=== PATIENT | female | born 1995 | race Caucasian/White ===

== ENCOUNTER 2019-11-26 18:28 | Emergency (ER) | payer MEDICAID ==
[2019-11-26] MEDS ORDERED: NORMAL SALINE 1000 ML 1,000 ML IV ONE (19:07)
--- NOTE | 2019-11-26 20:46 | ER Document Report ---
ED Medical Screen (RME) - General Chief Complaint: Vomiting Stated Complaint: VOMITING Time Seen by Provider: 11/26/19 19:00 Notes: Patient is a 24-year-old female with a history of an appendectomy who presents the emergency department with a chief complaint of right lower quadrant abdominal pain and vomiting "red stuff." Denies any dysuria or vaginal discharge. Exam: Patient clutching right lower abdominal area. I have greeted and performed a rapid initial assessment of this patient. A comprehensive ED assessment and evaluation of the patient, analysis of test results and completion of medical decision making process will be conducted by an additional ED providers. Physical Exam - Vital signs Vitals: Temp Pulse Resp BP Pulse Ox 98.6 F 111 H 18 107/93 H 100 11/26/19 18:58 11/26/19 18:58 11/26/19 18:58 11/26/19 18:58 11/26/19 18:58 Course - Vital Signs Vital signs: Temp Pulse Resp BP Pulse Ox 98.6 F 111 H 18 107/93 H 100 11/26/19 18:58 11/26/19 18:58 11/26/19 18:58 11/26/19 18:58 11/26/19 18:58
[2019-11-26 21:38] LABS: APPEARANCE,URINE SLIGHTLY-CLOUDY; BILIRUBIN,URINE NEGATIVE (NEGATIVE); COLOR,URINE YELLOW; GLUCOSE, URINE NEGATIVE (NEGATIVE); KETONES,URINE TRACE mg/dL (NEGATIVE); LEUKOCYTE ESTERASE,URINE NEGATIVE (NEGATIVE); NITRITE,URINE NEGATIVE (NEGATIVE); PROTEIN,URINE 30 mg/dL (NEGATIVE); URINE SPECIFIC GRAVITY 1.024; UROBILINOGEN,URINE NEGATIVE mg/dL (<2.0)
[2019-11-26] MEDS ORDERED: KETOROLAC TROMETHAMINE INJ/PF 30 MG/1 ML SDV IV ONE (21:46)
[2019-11-26] MEDS ORDERED: ONDANSETRON HCL INJ/PF 4 MG/2 ML SDV IV ONE (21:46)
--- NOTE | 2019-11-26 21:50 | ER Document Report ---
ED GI/ - General Chief Complaint: Vomiting Stated Complaint: VOMITING Time Seen by Provider: 11/26/19 19:00 Primary Care Provider: YENIFER RIBERA MD [ACTIVE STAFF] - Follow up as needed Notes: CHIEF COMPLAINT: Right flank pain with vomiting today HPI: 24-year-old female who is otherwise reasonably healthy presenting for sudden onset of right flank pain with vomiting today. Pain started in the right back now radiates through the right front and flank region. Describes it as an intermittent sharp stabbing sensation with nausea. States she has thrown up multiple times states that she felt like there was some redness to the vomitus the last 1 or 2 times. Denies epigastric pain. Does report a history of ova malina cyst is not sure if this feels similar. Denies vaginal bleeding or discharge. ROS: See HPI - all other systems were reviewed and are otherwise negative Constitutional: no fever Eyes: no drainage, no blurred vision ENT: no runny nose, no sore throat Cardiovascular: no chest pain Resp: no SOB, no cough GI: + vomiting, no diarrhea, + abdominal pain : no dysuria Integumentary: no rash Allergy: no hives Musculoskeletal: no extremity pain or swelling Neurological: no numbness/tingling, no weakness MEDICATIONS: I agree with the patient medications as charted by the RN. ALLERGIES: I agree with the allergies as charted by the RN. PAST MEDICAL HISTORY/PAST SURGICAL HISTORY: Reviewed and agree as charted by RN. SOCIAL HISTORY: Reviewed and agree as charted by RN. FAMILY HISTORY: No significant familial comorbid conditions directly related to patient complaint EXAM: Reviewed vital signs as charted by RN. CONSTITUTIONAL: Alert and oriented and responds appropriately to questions. Well-appearing; well-nourished, mild distress secondary to pain HEAD: Normocephalic; atraumatic EYES: Conjunctivae clear, sclerae non-icteric ENT: normal nose; no rhinorrhea; moist mucous membranes NECK: Supple without meningismus CARD: RRR; no murmurs, no clicks, no rubs, no gallops; symmetric distal pulses RESP: Normal chest excursion without splinting or tachypnea ABD/GI: Normal bowel sounds; non-distended; soft, mild tenderness to the right lateral abdomen on palpation, no rebound, no guarding; no palpable organomegaly or masses. BACK: The back appears normal and is non-tender to palpation, there is no CVA tenderness EXT: Normal ROM in all joints; non-tender to palpation; no cyanosis, no effusions, no edema SKIN: Normal color for age and race; warm; dry; good turgor; no acute lesions noted NEURO: Moves all extremities equally; Motor and sensory function intact PSYCH: The patient's mood and manner are appropriate. Grooming and personal hygiene are appropriate. MDM: 24-year-old female with right flank pain began in the back now in the front intermittent sharp stabbing episodes no history of kidney stones but I suspect possible renal colic. Will obtain renal colic CT. Will treat patient's pain and nausea. If CT does not show definitive stone will consider pelvic etiology such as ovarian cyst or torsion, will obtain ultrasound and perform pelvic Past Medical History - Social History Smoking Status: Unknown if Ever Smoked Family History: Reviewed & Not Pertinent Physical Exam - Vital signs Vitals: Temp Pulse Resp BP Pulse Ox 98.6 F 111 H 18 107/93 H 100 11/26/19 18:58 11/26/19 18:58 11/26/19 18:58 11/26/19 18:58 11/26/19 18:58 Course - Re-evaluation Re-evalutation: 11/26/19 23:14 With female phosphoric acid operator present patient was prepped and draped. Normal external female genitalia. No visible lesions. There is a moderate amount of a whitish discharge in the vaginal vault. Mild cervical motion tenderness. Moderate right adnexal tenderness without palpable mass or fullness. Mild left adnexal tenderness on palpation. No visible bleeding. Cervical os is closed. Uterus normal sized mildly tender 11/27/19 00:27 Patient ultrasound shows a 1.9 cm right ovarian cyst as well as moderate fluid in the cul-de-sac I suspect she likely also ruptured a cyst. No other acute findings noted, no torsion. Will discharge home with DENTAL SCHEDULER follow-up - Vital Signs Vital signs: Temp Pulse Resp BP Pulse Ox 98.6 F 111 H 18 107/93 H 100 11/26/19 21:52 11/26/19 18:58 11/26/19 18:58 11/26/19 18:58 11/26/19 18:58 - Laboratory Result Diagrams: 11/26/19 21:30 11/26/19 21:30 Laboratory results interpreted by me: 11/26/19 21:18 Urine Protein 30 H Urine Ketones TRACE H Discharge - Discharge Clinical Impression: Rupture of cyst of right ovary Condition: Stable Disposition: HOME, SELF-CARE Instructions: Ovarian Cyst ([facility]) Additional Instructions: It appears you may have ruptured an ovarian cyst on the right side. This is likely the cause of your pain. Your lab work and imaging studies do not show other acute findings. Follow-up with your DENTAL SCHEDULER for further evaluation and treatment call for appointment. Pain medications as prescribed no driving if taking narcotics for pain. Prescriptions: Diclofenac Sodium [Voltaren 50 Mg Tablet.] 50 mg PO BID #20 tablet. Ondansetron [Zofran Odt 4 mg Tablet] 1 - 2 tab PO Q4H PRN #15 tab.rapdis PRN Reason: For Nausea/Vomiting Referrals: YENIFER RIBERA MD [ACTIVE STAFF] - Follow up as needed
[2019-11-26 21:56] LABS: ABSOLUTE EOSINOPHILS # (AUTO) 0.1 10^3/uL (0.0-0.6); ABSOLUTE LYMPHOCYTES (AUTO) 2.3 10^3/uL (0.5-4.7); ABSOLUTE MONOCYTES (AUTO) 0.4 10^3/uL (0.1-1.4); ABSOLUTE NEUT (AUTO) 7.4 10^3/uL (1.7-8.2); BASOPHILS % (AUTO) 0.4 % (0-2); HEMATOCRIT 45.5 % (36.0-47.0); HEMOGLOBIN 15.4 g/dL (12.0-15.5); MEAN CORPUSCULAR HEMOGLOBIN 31.5 pg (27.0-33.4); MEAN CORPUSCULAR VOLUME 93 fl (80-97); MONOCYTES % (AUTO) 4.3 % (3-13); PLATELET COUNT 319 10^3/uL (150-450); RED CELL DISTRIBUTION WIDTH 13.3 % (11.5-14.0); SEGMENTED NEUTROPHILS % (AUTO) 72.3 % (42-78); TOTAL CELLS COUNTED % (AUTO) 100 %; WHITE BLOOD COUNT 10.3 10^3/uL (4.0-10.5)
[2019-11-26 22:06] LABS: ALBUMIN 4.9 g/dL (3.5-5.0); ALKALINE PHOSPHATASE 84 U/L (38-126); ANION GAP 10 (5-19); ASPARTATE AMINO TRANSFERASE 19 U/L (14-36); BILIRUBIN,DIRECT 0.2 mg/dL (0.0-0.4); BILIRUBIN,TOTAL 0.5 mg/dL (0.2-1.3); BLOOD UREA NITROGEN 7 mg/dL (7-20); CALCIUM 9.9 mg/dL (8.4-10.2); CARBON DIOXIDE 28 mmol/L (22-30); CHLORIDE 106 mmol/L (98-107); GLUCOSE 82 mg/dL (75-110); POTASSIUM 4.1 mmol/L (3.6-5.0); TOTAL PROTEIN 7.8 g/dL (6.3-8.2)
--- NOTE | 2019-11-26 22:35 | RADIOLOGY REPORT (SQ) ---
CT ABDOMEN PELVIS WITHOUT IV CONTRAST HISTORY: Right flank pain. COMPARISON: None. TECHNIQUE: CT scan of the abdomen and pelvis was performed without IV contrast. This exam was performed according to our departmental dose-optimization program, which includes automated exposure control, adjustment of the mA and/or kV according to patient size and/or use of iterative reconstruction technique. FINDINGS: The lung bases are clear. No pleural or pericardial effusions. There is no hiatal hernia. The liver, spleen, pancreas, gallbladder, adrenal glands, and kidneys are unremarkable. No hydronephrosis or urinary stones are seen. The pelvic organs are also unremarkable. A small amount of free fluid is present in the pelvic cul-de-sac, likely physiologic. There has been a prior appendectomy. The remainder of the small and large bowel are unremarkable without evidence of obstruction or inflammation. Mild somatic show subtle fatty infiltration throughout the colon. The stomach is also unremarkable. No intraperitoneal free fluid or free air is seen. The aorta is normal in caliber. No acute bony findings are seen. No abnormal body wall hernia. IMPRESSION: No acute abdominal or pelvic findings.
[2019-11-26] MEDS ORDERED: MORPHINE SULFATE 10 MG/ML INJ IV ONE (23:14)
--- NOTE | 2019-11-27 00:22 | RADIOLOGY REPORT (SQ) ---
EXAM DESCRIPTION: US PELVIS TRANSVAGINAL COMPLETED DATE/TME: 11/26/2019 22:47 CLINICAL HISTORY: 24 years Female, right pelvic pain Comparison: CT, same day. Technique: Transvaginal. LIMITATIONS: None. FINDINGS: 7-cm uterus, 1.0-cm endometrial stripe thickness, 2.8-cm right ovary with 1.9 cm complex cystic component within normal limits, and 2.6-cm left ovary appear otherwise unremarkable in size, shape, echotexture, and vascularity. Moderate free pelvic cul-de-sac fluid. IMPRESSION: Moderate free pelvic cul-de-sac fluid. Else, unremarkable.
[2019-11-27] MEDS ORDERED: HYDROCODONE/ACETAMINOPHEN 5-325 MG (6 TAB/ER DISP) PO PRN (00:31)
[2019-11-27 00:44] VITALS: BP 110/60
[2019-11-27 02:07] LABS: T.VAGINALIS (WET MOUNT) NO TRICHOMONAS SEEN; YEAST (WET MOUNT) NO YEAST SEEN
[2019-11-27 02:08] LABS: EPITHELIALS (WET MOUNT) 3+ EPITHELIALS SEEN; RBCS (WET MOUNT) NO RBCS SEEN; WBCS (WET MOUNT) RARE WBCS SEEN
[2019-11-27 03:39] LABS: CHLAM PCR NOT DETECTED (NOT DETECT)
== END 2019-11-27 00:44 | disposition home or self-care (01) ==
LOC: ER 18:28
DX: N83.291 Other ovarian cyst, right side (principal); R11.2 Nausea with vomiting, unspecified; R10.9 Unspecified abdominal pain; M54.9 Dorsalgia, unspecified
CPT/HCPCS: 99285; 96361; 96374; 96375; 36415; 87210; 83690; 85025; 81025; 80053; 81001; 87491; 87591; 76830; 93976; 74176; J1885; J2270; J2405; J7030